=== PATIENT | male | born 1925 | race Caucasian/White ===

== ENCOUNTER 2016-05-30 10:40 | Emergency (ER) | payer MEDICARE, OTHER ==
[~2016-05-30] VITALS: Ht 172.7 cm; Wt 79.8 kg
[~2016-05-30 10:40] MED LIST: AMLO5TAB2 PO; CEPH500C PO; CIPR500T78 PO; CPR500T PO; DARI15TA4 PO; ENAL2.5T PO; ENAL2.5T37 PO; ENAL5TAB PO; ESOM10SU; HYDR-3714 PO; HYDR-757 PO; HYDR-91 PO; HYDR1TAB8 OP; HYOS0.1216 PO; KETO-22 PO; METH500T PO; MUPI15CR TP; NF-ESOM40C; ORPH100T PO; PHEN200T27 PO; SULF1TAB35 PO; TRAM-21 PO
--- OUTSIDE RECORDS SUMMARY | 2016-05-30 10:45 | XMS REPORT | Continuity of Care Document ---
Author Author [facility] Organization [facility] Address Unknown Phone Unavailable Care Team Providers Care Car Shifter Name Role Phone PCP Unavailable Source Comments Some departments are not documenting in the electronic medical record. If you do not see the information that you expected, contact Release of Information in the Health Information Management department at [phone] for further assistance in locating additional records.[facility] Active Allergies and Adverse Reactions Not on File Current Medications Not on file Active Problems Not on file Social History Tobacco Use Types Packs/Day Years Used Date Never Assessed Plan of Care Health Maintenance Due Date Last Done Comments Physical (Comprehensive) 1934 Exam Pertussis Vaccine 1938 Tetanus Vaccine 1944 Shingles Vaccine 1987 Prevnar/Pneumovax (#1) 1992 Influenza Vaccine 01/13/2015 Results from Last 3 Months Not on file
--- NOTE | 2016-05-30 12:08 | Diagnostic Imaging Report ---
EXAMINATION: PA and lateral views of the chest. INDICATION: Cough and congestion. FINDINGS: There is no focal consolidation. Symmetric tiny nodules projecting over the lower lungs, not identified on the lateral view, are likely nipple shadows. There is also slight asymmetric density projecting over the right costochondral junction of the right first rib which appears somewhat similar to the 04/30/2015 comparison exam and is likely degenerative related. The heart size is normal. No effusion or pneumothorax. The mediastinum and dennis appear unremarkable. IMPRESSION: No acute process. Dictated by: Dictated on workstation # [id number]
[2016-05-30] MEDS ORDERED: ONDANSETRON 4 MG/2 ML (SDV) Z0FRAN IVP ONE (12:15)
[2016-05-30] MEDS ORDERED: NS IV 1000 ML 1,000 ML IV ONE (12:15)
[2016-05-30 12:27] LABS: BASOPHILS % (AUTO) 0 % (0-10); EOSINOPHILS % (AUTO) 0 % (0-10); LYMPHOCYTES # (AUTO) 1.1 X 10^3 (1.0-4.0); LYMPHOCYTES % (AUTO) 21 % (12-44); MEAN CORPUSCULAR HEMOGLOBIN 32 PG (25-34); MEAN CORPUSCULAR HGB CONC 34 G/DL (32-36); MEAN CORPUSCULAR VOLUME 93 FL (80-99); MEAN PLATELET VOLUME 11.1 FL (7.4-10.4); MONOCYTES # (AUTO) 0.8 X 10^3 (0.0-1.0); MONOCYTES % (AUTO) 15 % (0-12); NEUTROPHILS # (AUTO) 3.3 X 10^3 (1.8-7.8); NEUTROPHILS % (AUTO) 64 % (42-75); PLATELET COUNT 123 10^3/uL (130-400); RED BLOOD COUNT 4.96 10^6/uL (4.35-5.85); RED CELL DISTRIBUTION WIDTH 13.6 % (10.0-14.5); WHITE BLOOD COUNT 5.2 10^3/uL (4.3-11.0)
[2016-05-30] MEDS ORDERED: DARI15TA PO (12:35)
[2016-05-30 12:47] LABS: ALANINE AMINOTRANSFERASE 16 U/L (0-55); ALBUMIN 3.8 G/DL (3.2-4.5); ANION GAP 11 MMOL/L (5-14); ASPARTATE AMINO TRANSFERASE 20 U/L (5-34); BILIRUBIN,TOTAL 0.9 MG/DL (0.1-1.0); BLOOD UREA NITROGEN 19 MG/DL (7-18); BUN/CREATININE RATIO 22; CALCIUM 8.8 MG/DL (8.5-10.1); CARBON DIOXIDE 19 MMOL/L (21-32); CHLORIDE 104 MMOL/L (98-107); CREATININE SERUM 0.85 MG/DL (0.60-1.30); GFR ESTIMATED > 60; GLUCOSE 99 MG/DL (70-105); POTASSIUM 4.1 MMOL/L (3.6-5.0); SODIUM 134 MMOL/L (135-145); TOTAL PROTEIN 6.9 G/DL (6.4-8.2); hs C REACTIVE PROTEIN 4.61 MG/DL (0.00-0.50)
[2016-05-30 13:12] LABS: BILIRUBIN,URINE NEGATIVE (NEGATIVE); KETONES,URINE 2+ (NEGATIVE); LEUKOCYTE ESTERASE ,URINE 1+ (NEGATIVE); NITRITE,URINE NEGATIVE (NEGATIVE); PH,URINE 5 (5-9); PROTEIN,URINE 2+ (NEGATIVE); UROBILINOGEN,URINE NORMAL (NORMAL)
[2016-05-30 13:23] LABS: SQUAMOUS EPITHELIAL CELL,UR RARE /HPF; WBC,URINE RARE /HPF
[2016-05-30] MEDS ORDERED: OSLT75C PO (13:38)
[2016-05-30] MEDS ORDERED: ONDA4TAB8 SL (13:38)
--- NOTE | 2016-05-30 13:39 | ED General ---
General Chief Complaint: Cough/Cold/Flu Symptoms Stated Complaint: FLU Nursing Triage Note: PT REPORTS COUGH/COLD FLU SYMPTOMS X 1 WEEK. PT REPORTS ALL OVER BODY ACHGES AND DRY MOUTH WELL. Nursing Sepsis Screen: No Definite Risk Source of Information: Patient Exam Limitations: No Limitations History of Present Illness Time Seen by Provider: 11:22 Initial Comments This 89-year-old gentleman presents to the emergency room with approximately one week of flulike symptoms including congestion, nausea, cough, dry mouth, and fever. Temperature is 100.4. He recently finished a Z-Tello without much improvement. Allergies and Home Medications Allergies Coded Allergies: No Known Drug Allergies (Verified , 07/09/09) Home Medications Amlodipine Besylate 5 Mg Tablet #30 5 MG PO DAILY Prescribed by: GAURAV MARTINEZ on 05/01/15 1232 Darifenacin Hydrobromide 15 Mg Tab.er.24h #30 15 MG PO DAILY (Reported) Enalapril Maleate 5 Mg Tablet #60 5 MG PO BID Prescribed by: GAURAV MARTINEZ on 05/01/15 1232 Ondansetron 4 Mg Tab.rapdis #10 4 MG SL Q4H PRN PRN NAUSEA/VOMITING Prescribed by: SHAJI KAN on 05/30/16 1338 Oseltamivir Phosphate 75 Mg Cap #10 75 MG PO BID Prescribed by: SHAJI KAN on 05/30/16 1338 Constitutional: see HPI EENTM: no symptoms reported Respiratory: see HPI Cardiovascular: no symptoms reported Gastrointestinal: see HPI Genitourinary: no symptoms reported Musculoskeletal: no symptoms reported Skin: no symptoms reported Psychiatric/Neurological: No Symptoms Reported Hematologic/Lymphatic: No Symptoms Reported Past Izwdzlw-Myxhve-Guudgb Hx Patient Social History Alcohol Use: Denies Use Recreational Drug Use: No Smoking Status: Never a Smoker Recent Foreign Travel: No Contact w/Someone Who Travel: No Recent Infectious Disease Expo: No Recent Hopitalizations: Yes ( FOR KIDNEY STONE) Physical Abuse Screen: No Sexual Abuse: No Immunizations Up To Date Tetanus Booster (TDap): Unknown Date of Influenza Vaccine: Feb 12, 2015 Surgeries HX Surgeries: Yes (SUTURES IN FOOT, ESWL, EGD/COLONOSCOPY, REMOVAL OF SKIN CANCER) Surgeries: Adenoidectomy, Orthopedic, Renal, Tonsillectomy Respiratory Hx Respiratory Disorders: No Cardiovascular Hx Cardiac Disorders: Yes Cardiac Disorders: Hypertension Neurological Hx Neurological Disorders: No Reproductive System Hx Reproductive Disorders: No Sexually Transmitted Disease: No HIV/AIDS: No Genitourinary Hx Genitourinary Disorders: Yes Genitourinary Disorders: Prostate Problems, Kidney Stones Gastrointestinal Hx Gastrointestinal Disorders: Yes Gastrointestinal Disorders: Gastroesophageal Reflux, Ulcer Musculoskeletal Hx Musculoskeletal Disorders: Yes Musculoskeletal Disorders: Arthritis, Chronic Back Pain Endocrine Hx Endocrine Disorders: No HEENT HX ENT Disorders: No Loss of Vision: Denies Hearing Impairment: Denies Cancer Hx Cancer: Yes Cancer: Skin Psychosocial Hx Psychiatric Problems: No Integumentary HX Skin/Integumentary Disorder: Yes (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 Physical Exam Vital Signs Vital Sign - Last 12Hours 05/30/16 12:29 Temp 100.4 Pulse 81 Resp 18 B/P 156/91 Pulse Ox 95 O2 Delivery Room Air Capillary Refill : Less Than 3 Seconds General Appearance: No Apparent Distress WD/WN HEENT: PERRL/EOMI Normal ENT Inspection Other (Oropharynx somewhat dry) Neck: Normal Inspection Respiratory: Lungs Clear Normal Breath Sounds No Accessory Muscle Use No Respiratory Distress Cardiovascular: Regular Rate, Rhythm No Edema No Murmur Gastrointestinal: Normal Bowel Sounds Non Tender Soft Extremity: Normal Inspection No Pedal Edema Neurologic/Psychiatric: Alert Oriented x3 No Motor/Sensory Deficits 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 Patient was found to have influenza A. Symptoms were treated with Zofran and a liter of IV fluids. He was feeling significantly improved prior to dismissal. Patient was started on Tamiflu. His was instructed to start Tamiflu immediately if she developed flulike symptoms. Diagnostic Imaging Diagonstic Imaging: Xray Plain Films/CT/US/NM/MRI: chest Comments Chest x-ray viewed by me and report reviewed. See report below: NAME: HARJINDER LICONA [facility] REC#: [id number] PT STATUS: DEP ER : 1925 PHYSICIAN: SHAJI POLANCO MD ADMIT DATE: 05/30/16/ER Signed Date of Exam: 05/30/16 CHEST PA/LAT (2 VIEW) EXAMINATION: PA and lateral views of the chest. INDICATION: Cough and congestion. FINDINGS: There is no focal consolidation. Symmetric tiny nodules projecting over the lower lungs, not identified on the lateral view, are likely nipple shadows. There is also slight asymmetric density projecting over the right costochondral junction of the right first rib which appears somewhat similar to the 04/30/2015 comparison exam and is likely degenerative related. The heart size is normal. No effusion or pneumothorax. The mediastinum and dennis appear unremarkable. IMPRESSION: No acute process. Dictated by: Dictated on workstation # [id number] Dict: 05/30/16 1157 Trans: 05/30/16 1421 [id number] Interpreted by: KENNETH BEEBE MD Electronically signed by:KENNETH BEEBE MD 05/30/16 1424 Departure Impression Impression: Primary Impression: Influenza A Additional Impression: Nausea Disposition: HOME, SELF-CARE Condition: Improved Departure-Patient Inst. Decision time for Depature: 12:45 Referrals: KANDACE HERNADEZ MD (PCP/Family) Primary Care Physician Patient Instructions: Flu Add. Discharge Instructions: Stay well-hydrated. You may take Tylenol and/or ibuprofen for pain and fever. Return to care if symptoms worsen. Complete the entire course of Tamiflu as prescribed. You may use Zofran for nausea. Your should start Tamiflu immediately if she develops flu symptoms. All discharge instructions reviewed with patient and/or family. Voiced understanding. Scripts Ondansetron (Zofran Odt)4 Mg Tab.rapdis4 Mg SL Q4H PRN NAUSEA/VOMITING #10 TAB Prov:SHAJI POLANCO MD 05/30/16 Oseltamivir Phosphate (Tamiflu)75 Mg Cap75 Mg PO BID #10 CAP Prov:SHAJI POLANCO MD 05/30/16 SHAJI POLANCO MD May 30, 2016 13:38 Urine Clarity SLIGHTLY CLOUDY Urine Color YELLOW Urine Crystals NONE /LPF Urine Culture Indicated NO Urine Glucose (UA) NEGATIVE NEGATIVE Urine Ketones 2+ H NEGATIVE Urine Leukocyte Esterase 1+ H NEGATIVE Urine Mucus SMALL H /LPF Urine Nitrite NEGATIVE NEGATIVE Urine Protein 2+ H NEGATIVE Urine RBC NONE /HPF Urine RBC (Auto) 2+ H NEGATIVE Urine Specific [place] 1.025 H 1.016-1.022 Urine Squamous Epithelial Cells RARE /HPF Urine Urobilinogen NORMAL NORMAL MG/DL Urine WBC RARE /HPF Urine pH 5 5-9 Micro Results Microbiology 05/30/16 Influenza Types A,B Antigen (MOLLY) - Final, Complete My Orders Orders-SHAJI POLANCO MD Cbc With Automated Diff (05/30/16 11:22) Comprehensive Metabolic Panel (05/30/16 11:22) Hs C Reactive Protein (05/30/16 11:22) Lactic Acid Analyzer (05/30/16 11:22) Blood Culture (05/30/16 11:22) Influenza A And B Antigens (05/30/16 11:22) Saline Lock/Iv-Start (05/30/16 11:22) Chest Pa/Lat (2 View) (05/30/16 11:22) Ondansetron Injection (Zofran Injectio (05/30/16 12:15) Ns Iv 1000 Ml (Sodium Chloride 0.9%) (05/30/16 12:15) Ua Culture If Indicated (05/30/16 12:19) Medications Given in ED Current Medications Medications Dose Ordered Sig/Javad Route Start Time Stop Time Status Last Admin Dose Admin Ondansetron HCl 4 mg 4 mg ONCE ONCE IVP 05/30/16 12:15 05/30/16 12:16 DC 05/30/16 12:28 4 MG Sodium Chloride 1,000 ml @ 0 mls/hr Q0M ONCE IV 05/30/16 12:15 05/30/16 12:16 DC 05/30/16 12:39 0 MLS/HR Vital Signs/I&O Vital Sign - Last 12Hours 05/30/16 05/30/16 12:29 13:09 Temp 100.4 Pulse 81 Resp 18 B/P 156/91 Pulse Ox 95 O2 Delivery Room Air Room Air Blood Pressure Mean: 112 Departure Impression Impression: Primary Impression: Influenza A Additional Impression: Nausea Disposition: 01 HOME, SELF-CARE Condition: Improved Departure-Patient Inst. Referrals: KANDACE HERNADEZ MD (PCP/Family) Primary Care Physician Patient Instructions: Flu Add. Discharge Instructions: Stay well-hydrated. You may take Tylenol and/or ibuprofen for pain and fever. Return to care if symptoms worsen. Complete the entire course of Tamiflu as prescribed. You may use Zofran for nausea. Your should start Tamiflu immediately if she develops flu symptoms. All discharge instructions reviewed with patient and/or family. Voiced understanding. Scripts Ondansetron (Zofran Odt)4 Mg Tab.rapdis4 Mg SL Q4H PRN NAUSEA/VOMITING #10 TAB Prov:SHAJI POLANCO MD 05/30/16 Oseltamivir Phosphate (Tamiflu)75 Mg Cap75 Mg PO BID #10 CAP Prov:SHAJI POLANCO MD 05/30/16 SHAJI POLANCO MD May 30, 2016 13:38
[2016-05-30 13:46] VITALS: BP 135/80
== END 2016-05-30 13:47 | disposition home or self-care (01) ==
LOC: EDUNIT# 10:40 → ER 10:42
DX: J09.X2 Influenza due to identified novel influenza A virus with other respiratory manifestations (principal); R11.0 Nausea; I10 Essential (primary) hypertension; Z79.899 Other long term (current) drug therapy
CPT/HCPCS: 36415; 71020; 80053; 81000; 83605; 85025; 86141; 87040; 87804; 96361; 96374

== ENCOUNTER 2016-10-09 12:30 | Emergency (ER) | payer MEDICARE, OTHER ==
[~2016-10-09] VITALS: Ht 172.7 cm; Wt 77.1 kg
[~2016-10-09 12:30] MED LIST changes: +DARI15TA PO; +ONDA4TAB8 SL; +OSLT75C PO
--- NOTE | 2016-10-09 13:13 | ED Fall/Injury ---
General Chief Complaint: Trauma-Non Activation Stated Complaint: FALL/HEAD INJ Nursing Triage Note: FALL FROM STANDING POSITION. HEADACHE, KNEE PAIN, DENIES LOC. Source: patient, family ( and daughter) History of Present Illness Time seen by provider: 13:40 Initial Comments Patient has ER by private conveyance after having a fall this morning while going to community and he did not see a step and fell down on his knees and his forehead on the right side. He did not lose consciousness and he thought he was doing okay until a few hours later he was going out to do some yardwork and had a headache globally. This concerned him so he came to the ER. He denies using any blood thinners or aspirin. He is treated for high blood pressure at home by his private doctor, Dr. Hernadez. He denies nausea, vomiting, fevers, paresthesias, blindness, double vision, difficulty hearing, pain elsewhere. His headache resolved spontaneously already. Location Injury Occurred: 0700 Allergies and Home Medications Allergies Coded Allergies: No Known Drug Allergies (Verified , 07/09/09) Home Medications Amlodipine Besylate 5 Mg Tablet, 5 MG PO DAILY, #30 Prescribed by: GAURAV MARTINEZ on 05/01/15 1232 Enalapril Maleate 5 Mg Tablet, 5 MG PO BID, #60 Prescribed by: GAURAV MARTINEZ on 05/01/15 1232 Constitutional: No dizziness, No fever, No weakness Eyes: Denies Blindness, Denies Blurred Vision, Denies Pain Ears, Nose, Mouth, Throat: denies ear pain, denies nose pain, denies nose discharge, denies epistaxis, denies mouth pain, denies loose teeth Respiratory: No cough Cardiovascular: No palpitations, No syncope, No vascular heart diseas Gastrointestinal: No abdominal pain, No constipation, No diarrhea Genitourinary: No dysuria, No frequency, No incontinence, No pain Musculoskeletal: No back pain, joint pain (bilateral knees 2 out of 10) Skin: other (minor abrasions dressed with gauze over bilateral knees.) Psychiatric/Neurological: See HPI, Headache Past Slzuwlp-Qsqgfb-Gbkdwo Hx Patient Social History Alcohol Use: Denies Use Recreational Drug Use: No Smoking Status: Never a Smoker Recent Foreign Travel: No Contact w/Someone Who Travel: No Recent Infectious Disease Expo: No Recent Hopitalizations: No Immunizations Up To Date Tetanus Booster (TDap): Unknown Date of Influenza Vaccine: Feb 12, 2015 Seasonal Allergies Seasonal Allergies: No Surgeries HX Surgeries: Yes (SUTURES IN FOOT, ESWL, EGD/COLONOSCOPY, REMOVAL OF SKIN CANCER) Surgeries: Adenoidectomy, Orthopedic, Renal, Tonsillectomy Respiratory Hx Respiratory Disorders: No Cardiovascular Hx Cardiac Disorders: Yes Cardiac Disorders: Hypertension Neurological Hx Neurological Disorders: No Reproductive System Hx Reproductive Disorders: No Sexually Transmitted Disease: No HIV/AIDS: No Genitourinary Hx Genitourinary Disorders: Yes Genitourinary Disorders: Prostate Problems, Kidney Stones Gastrointestinal Hx Gastrointestinal Disorders: Yes Gastrointestinal Disorders: Gastroesophageal Reflux, Ulcer Musculoskeletal Hx Musculoskeletal Disorders: Yes Musculoskeletal Disorders: Arthritis, Chronic Back Pain Endocrine Hx Endocrine Disorders: No HEENT HX ENT Disorders: No Loss of Vision: Denies Hearing Impairment: Denies Cancer Hx Cancer: Yes Cancer: Skin Psychosocial Hx Psychiatric Problems: No Integumentary HX Skin/Integumentary Disorder: Yes (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 Mild superficial abrasion on the right prepatellar surface.) Progress/Results/Core Measures Results/Orders My Orders Orders - OLI PARK Ct Head/Cervical Spine Wo (10/09/16 13:13) Vital Signs/I&O Vital Sign - Last 12Hours 10/09/16 12:44 Temp 98.8 Pulse 63 Resp 16 B/P (MAP) 156/82 Pulse Ox 96 O2 Delivery Room Air Blood Pressure Mean: 106 Progress Note : Time: 13:23 Progress Note Patient had a well remembered fall without syncope and hitting his head with no hematoma or ecchymosis present on the spot where he hit it. He was not carrying anything in his hands but did not seem to hit his hands just his knees and his head. Because of his new onset of headache would get a precautionary CT looking for a subarachnoid hemorrhage or subdural hematoma. Diagnostic Imaging Diagonstic Imaging: CT Plain Films/CT/US/NM/MRI: head Comments NO SAH or SDH. Cervical spine without Fx or misalignment. [place]IA [place] NAME: HARJINDER LICONA [facility] REC#: [id number] PT STATUS: REG ER : 1925 PHYSICIAN: OLI PARK MD ADMIT DATE: 10/09/16/ER Draft Date of Exam:10/09/16 CT HEAD/CERVICAL SPINE WO PROCEDURE: CT head and CT cervical spine without contrast. TECHNIQUE: Multiple contiguous axial images were obtained through the brain and cervical spine without the use of intravenous contrast. Sagittal and coronal reformations through the cervical spine were then performed. INDICATION: Fall and hit head. COMPARISON: CT head of 04/28/15 FINDINGS: Head: No hyperdense mass or space-occupying mass. No hydrocephalus or midline shift. No evidence of territorial infarct. Age-related generalized cerebral and cerebellar volume loss without isolated lobar predominance. Basilar cisterns are patent. No focal scalp swelling. No skull fracture. Bilateral cataract surgery. 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 Cervical spine: No acute fracture or traumatic malalignment. 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 No foci of high-grade spinal stenosis or neuroforaminal narrowing by non-myelogram CT. Lung apices are clear. Airway is patent. No cervical lymphadenopathy. Visualized thyroid is normal. IMPRESSION: 1. No acute intracranial process. 2. No acute fracture or traumatic malalignment of the cervical spine. Dictated on workstation # [id number] Dict: 10/09/16 1352 Trans: 10/09/16 1356 [facility] [id number] Interpreted by: ADITYA PEDRAZA MD Electronically signed by: Reviewed: Reviewed by Me Departure Impression Impression: Primary Impression: Fall (on) (from) other stairs and steps, initial encounter Additional Impression: Headache Qualified Codes: R51 - Headache Disposition: 01 HOME, SELF-CARE Condition: Stable Departure-Patient Inst. Decision time for Depature: 14:05 Referrals: KANDACE HERNADEZ MD (PCP/Family) Primary Care Physician Patient Instructions: Concussion, Adult (DC) Add. Discharge Instructions: You have sustained a concussion. He should slowly return to doing the things that she did before by immediately discontinuing anything that causes new or worsens or symptoms such as headache, nausea, fatigue. All discharge instructions reviewed with patient and/or family. Voiced understanding. Copy Copies To 1: KANDACE HERNADEZ MD, TITUS J October 09, 2016 13:13
--- NOTE | 2016-10-09 13:56 | Diagnostic Imaging Report ---
PROCEDURE: CT head and CT cervical spine without contrast. TECHNIQUE: Multiple contiguous axial images were obtained through the brain and cervical spine without the use of intravenous contrast. Sagittal and coronal reformations through the cervical spine were then performed. INDICATION: Fall and hit head. COMPARISON: CT head of 04/28/15 FINDINGS: Head: No hyperdense mass or space-occupying mass. No hydrocephalus or midline shift. No evidence of territorial infarct. Age-related generalized cerebral and cerebellar volume loss without isolated lobar predominance. Basilar cisterns are patent. No focal scalp swelling. No skull fracture. Bilateral cataract surgery. 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 Cervical spine: No acute fracture or traumatic malalignment. 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 No foci of high-grade spinal stenosis or neuroforaminal narrowing by non-myelogram CT. Lung apices are clear. Airway is patent. No cervical lymphadenopathy. Visualized thyroid is normal. IMPRESSION: 1. No acute intracranial process. 2. No acute fracture or traumatic malalignment of the cervical spine. Dictated by: Dictated on workstation # [id number]
[2016-10-09 14:10] VITALS: BP 149/100
== END 2016-10-09 14:09 | disposition home or self-care (01) ==
LOC: EDUNIT# 12:30 → ER 12:32
DX: S09.90XA Unspecified injury of head, initial encounter (principal); I10 Essential (primary) hypertension; Z79.899 Other long term (current) drug therapy; W10.9XXA Fall (on) (from) unspecified stairs and steps, initial encounter; Y92.009 Unspecified place in unspecified non-institutional (private) residence as the place of occurrence of the external cause; Y99.8 Other external cause status
CPT/HCPCS: 70450; 72125; 99282

== ENCOUNTER → 2016-10-18 | Outpatient (CLI) | payer MEDICARE, OTHER ==
--- NOTE | 2016-10-18 14:27 | Diagnostic Imaging Report ---
EXAMINATION: Renal ultrasound. INDICATION: Followup renal cysts. FINDINGS: The right kidney is 9.7 and the left kidney is 10.9 cm in length. There is no hydronephrosis. Cystic lesions in the left kidney are seen. The largest is 4.6 x 2.4 x 4.7 cm. These are seen in the mid left kidney. Adjacent to it, there is a smaller cyst with septation seen measuring up to 2.2 x 2 x 1.9 cm. Another cyst in the mid left kidney more medially is up to 2.5 x 2.5 x 1.7 cm. No solid component or nodule is evident in these lesions. The slight septations mentioned above are suggestive of a minimally complicated cyst. The right kidney demonstrates no focal lesion. No internal vascularity is seen in any of these cysts. Overall, no significant change is noted when compared to 05/12/2015. The urinary bladder appears unremarkable. 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 No solid component is seen. No significant change from the 05/12/2015 exam. Dictated by: Dictated on workstation # [id number]
== END ==
LOC: RAD 09:05
PROVIDERS: ATTEND Nurse Practitioner Family
DX: N28.1 Cyst of kidney, acquired (principal)
CPT/HCPCS: 76770

== ENCOUNTER → 2017-01-10 | Outpatient (CLI) | payer MEDICARE, OTHER ==
--- NOTE | 2017-01-10 13:57 | Diagnostic Imaging Report ---
INDICATION: Cough and pain. Comparison made to prior examination 05/30/2016. FINDINGS: The heart size, mediastinal configuration, and pulmonary vascularity are within normal limits. There is no pleural effusion, pneumothorax, or pneumonia. The osseous structures are unremarkable. IMPRESSION: No acute cardiopulmonary abnormality. Dictated by: Dictated on workstation # [id number]
--- NOTE | 2017-01-10 14:23 | Diagnostic Imaging Report ---
INDICATION: Abdominal pain. 3 views were obtained. FINDINGS: The lung bases are clear. Bowel gas pattern is nonspecific. There are degenerative changes in the spine. There is a moderate amount of retained fecal material which may reflect some degree of constipation. IMPRESSION: Moderate amount of retained fecal material which may reflect some degree of constipation. Bowel gas pattern is otherwise nonspecific. Dictated by: Dictated on workstation # [id number]
== END ==
LOC: RAD 11:49
PROVIDERS: ATTEND Family Medicine
DX: R05 Cough (principal); K59.00 Constipation, unspecified; R10.84 Generalized abdominal pain
CPT/HCPCS: 71020; 74020